=== PATIENT | female | born 1955 | race Caucasian/White ===

== ENCOUNTER 2016-06-19 15:07 | Inpatient (IN) | payer MEDICAID ==
[~2016-06-19] VITALS: Ht 170.2 cm; Wt 47.2 kg
[2016-06-19] MEDS ORDERED: METHYLPRED SOD SUCC 125 MG/2 ML VIAL ONE (18:55)
[2016-06-19] MEDS ORDERED: DOXYCYCLINE 100 MG TAB PO ONE (18:55)
[2016-06-19] MEDS ORDERED: DUONEB INH ONE ×3 (18:59→19:00)
[2016-06-19] MEDS ORDERED: ONDANSETRON 4 MG VIAL IV PRN (20:20)
[2016-06-19] MEDS ORDERED: hydrOXYzine 25 MG TAB PO PRN (20:25)
[2016-06-19 22:06] VITALS: BP_SYST 131; RESP 24; TEMP 97.9
[2016-06-19 22:08] VITALS: BMI 16.3
[2016-06-19] MEDS: DUONEB INH SCH (22:46)
[2016-06-19 22:51] VITALS: RESP 25
[2016-06-19] MEDS ORDERED: MISSING DOSE XX ONE ×2 (23:25→23:30)
[2016-06-19] MEDS: GABAPENTIN 600 MG TAB PO SCH (23:32)
[2016-06-19] MEDS: CEFTRIAXONE 1 GM in SODIUM CHLORIDE 0.9% 50 ML IV SCH (23:32)
[2016-06-19] MEDS: METHYLPRED SOD SUCC 40 MG VIAL IV SCH (23:34)
[2016-06-20] VITALS (7 sets, daily range): BP systolic 115–146; RESP 18–24; TEMP 97.6–98.7; Ht 170.2 cm; Wt 47.2 kg
[2016-06-20] MEDS: SODIUM CHLORIDE 0.9% FLUSH BAG 500 ML IV SCH (05:29)
[2016-06-20] MEDS: NEB-BROVANA 15 MCG/2 ML INH SCH ×3 (06:42→19:37)
[2016-06-20] MEDS: DUONEB INH SCH ×3 (06:42→23:31)
[2016-06-20] MEDS: MDI-SPIRIVA 5 DOSES INH SCH (07:00)
[2016-06-20] MEDS: SALINE FLUSH 10 ML FLUSH SCH ×2 (08:35→23:48)
[2016-06-20] MEDS: METHYLPRED SOD SUCC 40 MG VIAL IV SCH ×2 (08:35→16:59)
[2016-06-20] MEDS: GABAPENTIN 600 MG TAB PO SCH ×2 (08:36→22:02)
[2016-06-20] MEDS: ENOXAPARIN 40 MG/0.4 ML SYR SUBQ SCH (08:36)
[2016-06-20] MEDS: LORATADINE 10 MG TAB PO SCH (08:36)
[2016-06-20] MEDS: amLODIPine 2.5 MG TAB PO SCH (08:36)
[2016-06-20] MEDS: FAMOTIDINE 20 MG TAB PO SCH (08:37)
[2016-06-20] MEDS: CEFTRIAXONE 1 GM in SODIUM CHLORIDE 0.9% 50 ML IV SCH (08:37)
[2016-06-20] MEDS: SPIRONOLACTONE 25 MG TAB PO SCH (08:53)
[2016-06-20] MEDS ORDERED: DUONEB INH PRN (11:55)
[2016-06-20] MEDS ORDERED: LEVOFLOXACIN 500 MG/100 ML 100 ML IV SCH (12:00)
[2016-06-20] MEDS: PIPERACIL/TAZO 3.375GM/50ML 50 ML IV SCH ×2 (12:50→16:59)
[2016-06-20] MEDS ORDERED: DUONEB INH SCH (15:00)
[2016-06-20] MEDS ORDERED: AZITHROMYCIN 250 MG TAB PO ONE (17:25)
[2016-06-20] MEDS: NEB-BUDESONIDE 0.5 MG INH SCH (19:37)
[2016-06-21] VITALS (7 sets, daily range): BP systolic 123–149; RESP 18–22; TEMP 97.5–98.7
[2016-06-21] MEDS: PIPERACIL/TAZO 3.375GM/50ML 50 ML IV SCH ×4 (00:10→23:49)
[2016-06-21] MEDS: METHYLPRED SOD SUCC 40 MG VIAL IV SCH ×4 (00:10→23:50)
[2016-06-21] MEDS: SODIUM CHLORIDE 0.9% FLUSH BAG 500 ML IV SCH (06:02)
[2016-06-21] MEDS: NEB-BROVANA 15 MCG/2 ML INH SCH ×3 (06:31→19:42)
[2016-06-21] MEDS: DUONEB INH SCH ×5 (06:47→23:19)
[2016-06-21] MEDS: NEB-BUDESONIDE 0.5 MG INH SCH ×2 (06:47→19:42)
[2016-06-21] MEDS: MDI-SPIRIVA 5 DOSES INH SCH (06:48)
[2016-06-21] MEDS: SALINE FLUSH 10 ML FLUSH SCH ×2 (09:07→20:11)
[2016-06-21] MEDS: AZITHROMYCIN 250 MG TAB PO SCH (09:19)
[2016-06-21] MEDS: SPIRONOLACTONE 25 MG TAB PO SCH (09:19)
[2016-06-21] MEDS: amLODIPine 2.5 MG TAB PO SCH (09:20)
[2016-06-21] MEDS: LORATADINE 10 MG TAB PO SCH (09:20)
[2016-06-21] MEDS: FAMOTIDINE 20 MG TAB PO SCH (09:20)
[2016-06-21] MEDS: GABAPENTIN 600 MG TAB PO SCH ×2 (09:20→20:11)
[2016-06-21] MEDS: ENOXAPARIN 40 MG/0.4 ML SYR SUBQ SCH (09:21)
[2016-06-21] MEDS ORDERED: MISSING DOSE XX ONE (17:35)
[2016-06-22 03:06] VITALS: BP_SYST 120; RESP 22; TEMP 97.8
[2016-06-22] MEDS: SODIUM CHLORIDE 0.9% FLUSH BAG 500 ML IV SCH (06:43)
[2016-06-22 07:25] VITALS: BP_SYST 113; RESP 18; TEMP 97.6
[2016-06-22] MEDS: NEB-BUDESONIDE 0.5 MG INH SCH ×2 (08:04→18:43)
[2016-06-22] MEDS: NEB-BROVANA 15 MCG/2 ML INH SCH ×2 (08:04→18:43)
[2016-06-22] MEDS: DUONEB INH SCH ×5 (08:05→23:18)
[2016-06-22] MEDS: SALINE FLUSH 10 ML FLUSH SCH ×2 (08:26→20:17)
[2016-06-22] MEDS: METHYLPRED SOD SUCC 40 MG VIAL IV SCH ×2 (08:26→15:38)
[2016-06-22] MEDS: PIPERACIL/TAZO 3.375GM/50ML 50 ML IV SCH ×2 (08:26→15:38)
[2016-06-22] MEDS: amLODIPine 2.5 MG TAB PO SCH (08:27)
[2016-06-22] MEDS: SPIRONOLACTONE 25 MG TAB PO SCH (08:27)
[2016-06-22] MEDS: FAMOTIDINE 20 MG TAB PO SCH (08:27)
[2016-06-22] MEDS: GABAPENTIN 600 MG TAB PO SCH ×2 (08:27→20:17)
[2016-06-22] MEDS: AZITHROMYCIN 250 MG TAB PO SCH (08:27)
[2016-06-22] MEDS: LORATADINE 10 MG TAB PO SCH (08:27)
[2016-06-22] MEDS: ENOXAPARIN 40 MG/0.4 ML SYR SUBQ SCH (08:28)
[2016-06-22] MEDS ORDERED: CHLORASEPTIC LOZ PO PRN (11:00)
[2016-06-22 11:32] VITALS: BP_SYST 140; RESP 18; TEMP 97.9
[2016-06-22] MEDS: SALINE FLUSH 10 ML FLUSH PRN (15:37)
[2016-06-22 16:09] VITALS: BP_SYST 126; RESP 18; TEMP 97.8
[2016-06-22 19:22] VITALS: BP_SYST 140; RESP 20; TEMP 98.2
[2016-06-22 23:07] VITALS: BP_SYST 128; RESP 20; TEMP 98.4
[2016-06-23] MEDS: PIPERACIL/TAZO 3.375GM/50ML 50 ML IV SCH ×4 (00:51→23:34)
[2016-06-23] MEDS: METHYLPRED SOD SUCC 40 MG VIAL IV SCH ×4 (00:54→23:34)
[2016-06-23 03:53] VITALS: BP_SYST 125; RESP 18; TEMP 98.3
[2016-06-23] MEDS: SODIUM CHLORIDE 0.9% FLUSH BAG 500 ML IV SCH (06:00)
[2016-06-23] MEDS: NEB-BUDESONIDE 0.5 MG INH SCH ×2 (07:25→20:12)
[2016-06-23] MEDS: NEB-BROVANA 15 MCG/2 ML INH SCH ×2 (07:25→20:12)
[2016-06-23] MEDS: DUONEB INH SCH ×5 (07:25→23:37)
[2016-06-23 07:51] VITALS: BP_SYST 135; RESP 20; TEMP 97.7
[2016-06-23] MEDS: SALINE FLUSH 10 ML FLUSH SCH ×2 (10:15→20:11)
[2016-06-23] MEDS: LORATADINE 10 MG TAB PO SCH (10:16)
[2016-06-23] MEDS: AZITHROMYCIN 250 MG TAB PO SCH (10:16)
[2016-06-23] MEDS: ENOXAPARIN 40 MG/0.4 ML SYR SUBQ SCH (10:16)
[2016-06-23] MEDS: GUAIFENESIN ER 600 MG TABCR PO SCH ×2 (10:16→20:11)
[2016-06-23] MEDS: amLODIPine 2.5 MG TAB PO SCH (10:16)
[2016-06-23] MEDS: GABAPENTIN 600 MG TAB PO SCH ×2 (10:16→20:11)
[2016-06-23] MEDS: FAMOTIDINE 20 MG TAB PO SCH (10:17)
[2016-06-23] MEDS: SPIRONOLACTONE 25 MG TAB PO SCH (10:17)
[2016-06-23 13:30] VITALS: BP_SYST 140; RESP 18; TEMP 98.2
[2016-06-23] MEDS: SALINE FLUSH 10 ML FLUSH PRN (15:18)
[2016-06-23 19:20] VITALS: BP_SYST 148; RESP 20; TEMP 98.1
[2016-06-23 23:22] VITALS: BP_SYST 135; RESP 20; TEMP 97.3
[2016-06-24] VITALS (10 sets, daily range): BP systolic 124–154; RESP 16–20; TEMP 97.3–98.5
[2016-06-24] MEDS: SODIUM CHLORIDE 0.9% FLUSH BAG 500 ML IV SCH (05:23)
[2016-06-24] MEDS: NEB-BUDESONIDE 0.5 MG INH SCH ×2 (07:05→19:32)
[2016-06-24] MEDS: NEB-BROVANA 15 MCG/2 ML INH SCH ×2 (07:05→19:33)
[2016-06-24] MEDS: DUONEB INH SCH ×5 (07:05→23:33)
[2016-06-24] MEDS: FAMOTIDINE 20 MG TAB PO SCH (09:54)
[2016-06-24] MEDS: LORATADINE 10 MG TAB PO SCH (09:54)
[2016-06-24] MEDS: METHYLPRED SOD SUCC 40 MG VIAL IV SCH ×3 (09:54→23:08)
[2016-06-24] MEDS: GABAPENTIN 600 MG TAB PO SCH ×2 (09:54→20:16)
[2016-06-24] MEDS: AZITHROMYCIN 250 MG TAB PO SCH (09:54)
[2016-06-24] MEDS: amLODIPine 2.5 MG TAB PO SCH (09:54)
[2016-06-24] MEDS: SALINE FLUSH 10 ML FLUSH SCH ×2 (09:55→20:17)
[2016-06-24] MEDS: SPIRONOLACTONE 25 MG TAB PO SCH (09:55)
[2016-06-24] MEDS: PIPERACIL/TAZO 3.375GM/50ML 50 ML IV SCH ×3 (09:55→23:08)
[2016-06-24] MEDS: GUAIFENESIN ER 600 MG TABCR PO SCH ×2 (09:55→20:16)
[2016-06-24] MEDS: ENOXAPARIN 40 MG/0.4 ML SYR SUBQ SCH (09:56)
[2016-06-25] VITALS (7 sets, daily range): BP systolic 132–153; RESP 16–20; TEMP 97.5–98.6
[2016-06-25] MEDS: SODIUM CHLORIDE 0.9% FLUSH BAG 500 ML IV SCH (06:39)
[2016-06-25] MEDS: SALINE FLUSH 10 ML FLUSH SCH ×2 (07:56→20:17)
[2016-06-25] MEDS: PIPERACIL/TAZO 3.375GM/50ML 50 ML IV SCH ×2 (07:56→15:13)
[2016-06-25] MEDS: METHYLPRED SOD SUCC 40 MG VIAL IV SCH ×2 (07:56→15:13)
[2016-06-25] MEDS: GUAIFENESIN ER 600 MG TABCR PO SCH ×2 (08:02→20:16)
[2016-06-25] MEDS: LORATADINE 10 MG TAB PO SCH (08:02)
[2016-06-25] MEDS: amLODIPine 2.5 MG TAB PO SCH (08:02)
[2016-06-25] MEDS: GABAPENTIN 600 MG TAB PO SCH ×2 (08:02→20:16)
[2016-06-25] MEDS: FAMOTIDINE 20 MG TAB PO SCH (08:02)
[2016-06-25] MEDS: ENOXAPARIN 40 MG/0.4 ML SYR SUBQ SCH (08:02)
[2016-06-25] MEDS: AZITHROMYCIN 250 MG TAB PO SCH (08:02)
[2016-06-25] MEDS: SPIRONOLACTONE 25 MG TAB PO SCH (08:03)
[2016-06-25] MEDS: NEB-BROVANA 15 MCG/2 ML INH SCH ×2 (08:32→18:47)
[2016-06-25] MEDS: DUONEB INH SCH ×5 (08:32→23:15)
[2016-06-25] MEDS: NEB-BUDESONIDE 0.5 MG INH SCH ×2 (08:32→18:47)
[2016-06-26] MEDS: PIPERACIL/TAZO 3.375GM/50ML 50 ML IV SCH ×3 (00:36→15:52)
[2016-06-26] MEDS: METHYLPRED SOD SUCC 40 MG VIAL IV SCH ×3 (00:37→15:52)
[2016-06-26 03:35] VITALS: BP_SYST 139; RESP 16; TEMP 97.6
[2016-06-26] MEDS: SODIUM CHLORIDE 0.9% FLUSH BAG 500 ML IV SCH (06:10)
[2016-06-26] MEDS: DUONEB INH SCH ×5 (06:41→22:29)
[2016-06-26] MEDS: NEB-BROVANA 15 MCG/2 ML INH SCH ×2 (06:42→18:55)
[2016-06-26] MEDS: NEB-BUDESONIDE 0.5 MG INH SCH ×2 (06:42→18:54)
[2016-06-26 07:26] VITALS: BP_SYST 137; RESP 18; TEMP 97.4
[2016-06-26] MEDS ORDERED: MISSING DOSE XX ONE (08:15)
[2016-06-26] MEDS: ENOXAPARIN 40 MG/0.4 ML SYR SUBQ SCH (08:18)
[2016-06-26] MEDS: GUAIFENESIN ER 600 MG TABCR PO SCH ×2 (08:18→20:25)
[2016-06-26] MEDS: FAMOTIDINE 20 MG TAB PO SCH (08:18)
[2016-06-26] MEDS: LORATADINE 10 MG TAB PO SCH (08:18)
[2016-06-26] MEDS: GABAPENTIN 600 MG TAB PO SCH ×2 (08:18→20:25)
[2016-06-26] MEDS: SPIRONOLACTONE 25 MG TAB PO SCH (08:18)
[2016-06-26] MEDS: amLODIPine 2.5 MG TAB PO SCH (08:18)
[2016-06-26] MEDS: SALINE FLUSH 10 ML FLUSH SCH ×2 (08:30→20:25)
[2016-06-26 11:17] VITALS: BP_SYST 138; RESP 18; TEMP 97.4
[2016-06-26] MEDS ORDERED: NITROGLYCERIN SL 0.4 MG TAB SL ONE (14:01)
[2016-06-26] MEDS ORDERED: MORPHINE 2 MG/ML SYR IV ONE (14:50)
[2016-06-26] MEDS ORDERED: METOPROLOL 5 MG/5 ML VIAL IV ONE (14:50)
[2016-06-26 15:50] VITALS: BP_SYST 140; RESP 20; TEMP 97.5
[2016-06-26 20:36] VITALS: BP_SYST 134; RESP 20; TEMP 98.1
[2016-06-26 23:30] VITALS: BP_SYST 138; RESP 18; TEMP 97.1
[2016-06-27] MEDS: PIPERACIL/TAZO 3.375GM/50ML 50 ML IV SCH ×2 (00:10→09:00)
[2016-06-27] MEDS: METHYLPRED SOD SUCC 40 MG VIAL IV SCH ×2 (00:10→09:01)
[2016-06-27 02:54] VITALS: BP_SYST 134
[2016-06-27 02:55] VITALS: RESP 16; TEMP 97.4
[2016-06-27] MEDS: SODIUM CHLORIDE 0.9% FLUSH BAG 500 ML IV SCH (06:26)
[2016-06-27 07:49] VITALS: BP_SYST 134; RESP 18; TEMP 97.4
[2016-06-27] MEDS: NEB-BROVANA 15 MCG/2 ML INH SCH ×2 (07:54→19:33)
[2016-06-27] MEDS: NEB-BUDESONIDE 0.5 MG INH SCH ×2 (07:54→19:33)
[2016-06-27] MEDS: DUONEB INH SCH ×5 (07:54→23:38)
[2016-06-27] MEDS: SALINE FLUSH 10 ML FLUSH SCH ×2 (09:01→20:34)
[2016-06-27] MEDS: GABAPENTIN 600 MG TAB PO SCH ×2 (09:01→20:33)
[2016-06-27] MEDS: FAMOTIDINE 20 MG TAB PO SCH (09:01)
[2016-06-27] MEDS: amLODIPine 2.5 MG TAB PO SCH (09:02)
[2016-06-27] MEDS: SPIRONOLACTONE 25 MG TAB PO SCH (09:02)
[2016-06-27] MEDS: GUAIFENESIN ER 600 MG TABCR PO SCH ×2 (09:02→20:33)
[2016-06-27] MEDS: LORATADINE 10 MG TAB PO SCH (09:02)
[2016-06-27] MEDS: ENOXAPARIN 40 MG/0.4 ML SYR SUBQ SCH (09:04)
[2016-06-27 11:35] VITALS: BP_SYST 132; RESP 18; TEMP 97.4
[2016-06-27 15:54] VITALS: BP_SYST 140; RESP 18; TEMP 96
[2016-06-27 19:51] VITALS: BP_SYST 134; RESP 22; TEMP 97.9
[2016-06-28] VITALS (8 sets, daily range): BP systolic 126–147; RESP 18–20; TEMP 97.8–98.5
[2016-06-28] MEDS: SODIUM CHLORIDE 0.9% FLUSH BAG 500 ML IV SCH (06:00)
[2016-06-28] MEDS: NEB-BUDESONIDE 0.5 MG INH SCH (06:19)
[2016-06-28] MEDS: NEB-BROVANA 15 MCG/2 ML INH SCH (06:19)
[2016-06-28] MEDS: DUONEB INH SCH ×3 (06:19→14:45)
[2016-06-28] MEDS ORDERED: PREDNISONE 10 MG TAB PO SCH (09:00)
[2016-06-28] MEDS: SALINE FLUSH 10 ML FLUSH SCH (09:07)
[2016-06-28] MEDS: amLODIPine 2.5 MG TAB PO SCH (09:08)
[2016-06-28] MEDS: GUAIFENESIN ER 600 MG TABCR PO SCH (09:09)
[2016-06-28] MEDS: SPIRONOLACTONE 25 MG TAB PO SCH (09:09)
[2016-06-28] MEDS: GABAPENTIN 600 MG TAB PO SCH (09:09)
[2016-06-28] MEDS: ENOXAPARIN 40 MG/0.4 ML SYR SUBQ SCH (09:10)
[2016-06-28] MEDS: FAMOTIDINE 20 MG TAB PO SCH (09:10)
[2016-06-28] MEDS: LORATADINE 10 MG TAB PO SCH (09:10)
== END 2016-06-28 15:02 | disposition home health service (06) | DRG 190 ==
LOC: ENRESERV → ENRESERVDT → ENRESERVTM → ER 15:07 → ENPENDDIS 19:00 → EMR 19:00 → 3NT 21:52
PROVIDERS: ADMIT Family Medicine; ATTEND Family Medicine
DX: J44.1 Chronic obstructive pulmonary disease with (acute) exacerbation (principal); E43 Unspecified severe protein-calorie malnutrition; J96.11 Chronic respiratory failure with hypoxia; Z68.1 Body mass index [BMI] 19.9 or less, adult; F41.9 Anxiety disorder, unspecified; Z72.0 Tobacco use; D72.829 Elevated white blood cell count, unspecified; Z79.51 Long term (current) use of inhaled steroids
CPT/HCPCS: 36415; 71010; 80048; 80053; 82553; 83735; 83880; 84484; 85025; 85610; 85730; 86738; 87071; 87081; 87278; 87299; 87493; 93005; 94640; 94667; 94799; 99223; 99232; 99233; 99238